=== PATIENT | female | born 1995 | race Caucasian/White ===

== ENCOUNTER 2021-04-22 09:29 | Emergency (ER) | payer OTHER ==
[~2021-04-22] VITALS: Ht 170.2 cm; Wt 97.0 kg
[2021-04-22 09:48] VITALS: BP 146/93
[2021-04-22] MEDS ORDERED: LIDOCAINE 2%/EPI 1:100,000 20 ML VIAL. IJ ONE (10:30)
--- NOTE | 2021-04-22 10:32 | PHYS DOC ---
Past History Past Medical History: No Pertinent History (CORAL ALMEIDA APRN) Past Surgical History: Tonsillectomy (CORAL ALMEIDA APRN) Smoking: Non-smoker Alcohol Use: Rarely Drug Use: None (CORAL ALMEIDA APRN) General Adult EDM: Chief Complaint: OTHER COMPLAINTS HPI: HPI: Patient is a 25-year-old female that presents today with pain in her coccyx area. Patient states pain started on Tuesday, she states she saw her primary care physician on Tuesday, was noted to have a urinary tract infection, and had some x-rays done in the primary care's office, they stated that this could be a toxic injury, instructed her to take the antibiotics for her UTI, and to take Tylenol and/or ibuprofen as needed for pain. Pain has gotten progressively worse over the last 2 days, and the Tylenol and/or ibuprofen is not helping. Patient denies fever and chills, numbness tingling down her legs or groin area, denies having any issues with urinating or defecating. (CORAL ALMEIDA APRN) Review of Systems: Review of Systems: Constitutional: Denies fever or chills Eyes: Denies change in visual acuity HENT: Denies nasal congestion or sore throat Respiratory: Denies cough or shortness of breath Cardiovascular: Denies chest pain or edema GI: Denies abdominal pain, nausea, vomiting, bloody stools or diarrhea : Denies dysuria Musculoskeletal: Pain in the coccyx area Integument: Denies rash Neurologic: Denies headache, focal weakness or sensory changes Endocrine: Denies polyuria or polydipsia Lymphatic: Denies swollen glands Psychiatric: Denies depression or anxiety (CORAL ALMEIDA APRN) Current Medications: Current Meds: Current Medications Medications (Trade) Dose Ordered Sig/Thomas Start Time Stop Time Status Last Admin Dose Admin Lidocaine/ Epinephrine (Xylocaine 2%-Epi 1:100,000) 20 ml 1X ONCE 04/22/21 10:30 04/22/21 10:31 (CORAL ALMEIDA APRN) Allergies: Allergies: Allergies Coded Allergies Type Severity Reaction Last Updated Verified No Known Drug Allergies 05/18/16 No (CORAL ALMEIDA APRN) Physical Exam: PE: Constitutional: Well developed, well nourished, no acute distress, non-toxic appearance. [] HENT: Normocephalic, atraumatic, bilateral external ears normal, oropharynx moist, no oral exudates, nose normal. [] Eyes: PERRLA, EOMI, conjunctiva normal, no discharge. [] Neck: Normal range of motion, no tenderness, supple, no stridor. [] Cardiovascular:Heart rate regular rhythm, no murmur [] Lungs & Thorax: Bilateral breath sounds clear to auscultation [] Abdomen: Bowel sounds normal, soft, no tenderness, no masses, no pulsatile masses. [] Skin: 2 cm x 1 cm raised area in the anibal cleft on the left buttock area, area is painful to touch [] Back: No tenderness, no CVA tenderness. [] Extremities: No tenderness, no cyanosis, no clubbing, ROM intact, no edema. [] Neurologic: Alert and oriented X 3, normal motor function, normal sensory function, no focal deficits noted. [] Psychologic: Affect normal, judgement normal, mood normal. [] (CORAL ALMEIDA APRN) Current Patient Data: Labs: Laboratory Tests Test 04/22/21 10:06 POC Urine HCG, Qualitative hcg negative (Negative) Vital Signs: Vital Signs Date Time Temp Pulse Resp B/P (MAP) Pulse Ox O2 Delivery O2 Flow Rate FiO2 04/22/21 09:48 98.7 108 18 146/93 (110) 98 (CORAL ALMEIDA APRN) EKG: EKG: [] (CORAL ALMEIDA APRN) Radiology/Procedures: Radiology/Procedures: Indication: Pilonidal cyst Procedure: The patient was positioned appropriately and the skin over the incision site was cleansed with betadine]. Local anesthesia was lidocaine 1% with epinephrine 7 mL. An incision was then made over the right buttock pilonidal cyst and large amount of purulent material was expressed. Loculations were broken up with a hemostat. The drainage cavity was then packed with half- inch plain packing. the patients tetanus status unknown, patient will be given a tetanus shot The patient tolerated the procedure well Complications: None] (CORAL ALMEIDA APRN) Heart Score: C/O Chest Pain: N/A Risk Factors: Risk Factors: DM, Current or recent (<one month) smoker, HTN, HLP, family histo ry of CAD, obesity. Risk Scores: Score 0 - 3: 2.5% MACE over next 6 weeks - Discharge Home Score 4 - 6: 20.3% MACE over next 6 weeks - Admit for Clinical Observation Score 7 - 10: 72.7% MACE over next 6 weeks - Early Invasive Strategies (CORAL ALMEIDA APRN) Course & Med Decision Making: Course & Med Decision Making Pertinent Labs and Imaging studies reviewed. (See chart for details) Patient is to continue to take her Bactrim DS, leave packing in place until Tuesday night then remove while in the shower. Follow-up with your primary care physician on Tuesday, patient is to return to the emergency department for increased pain, redness, development of a fever, or any other concerns she may have (CORAL ALMEIDA APRN) Dragon Disclaimer: Dragon Disclaimer: This electronic medical record was generated, in whole or in part, using a voice recognition dictation system. (CORAL ALMEIDA APRN) Departure Departure: Impression: Primary Impression: Pilonidal cyst of cleft Disposition: HOME / SELF CARE / HOMELESS Condition: STABLE Referrals: SEBASTIAN GAYLE APRN (PCP) KATIE WALDRON MD Patient Instructions: Pilonidal Cyst, Care After Additional Instructions: Continue to take Bactrim DS Follow-up with your primary care physician by phone this afternoon and make a follow-up appointment for Tuesday or Tuesday Leave packing in place until Tuesday Return to the emergency department if you develop a fever, increased pain or swelling in that area, . Hydrocodone 1 tablet every 6 hours as needed for severe pain, take Tylenol and/or ibuprofen [id number] as needed for mild to moderate pain Follow-up with the general surgeon provided for further management of the cyst Scripts Hydrocodone Bit/Acetaminophen (HYDROCODONE-APAP 5-325 ) 1 Each Tablet 1 TAB PO PRN Q6HRS PRN for PAIN, #10 TAB 0 Refills Prov: CORAL ALMEIDA APRN 04/22/21 Attending Signature Attending Signature I have reviewed the PA/EXECUTIVE RECEPTIONIST's note and plan of care. I was available for consultation as needed during the patient's visit in the emergency department. I agree with the clinical impression, plan, and disposition. (GEORGE NICOLE DO) CORAL ALMEIDA APRN Apr 22, 2021 10:32 GEORGE NICOLE DO Apr 23, 2021 01:14
[2021-04-22] MEDS ORDERED: LIDOCAINE 1%/EPI 1:100,000 20 ML VIAL. IJ ONE (10:45)
[2021-04-22] MEDS ORDERED: HYDR-2155 PO (11:30)
[2021-04-22] MEDS ORDERED: DIPH,PERTUSS(ACELL),TET VAC/PF 0.5 ML SYRINGE. VAX IM ONE (11:45)
== END 2021-04-22 12:08 | disposition home or self-care (01) ==
LOC: ER 09:29
DX: L05.91 Pilonidal cyst without abscess (principal)
CPT/HCPCS: 10080; 81025; 90471; 90715; 99283

== ENCOUNTER → 2021-08-05 | Day surgery (SDC) | payer OTHER ==
[~2021-08-05] MED LIST: ACETAMINOPHEN 500 MG TABLET PO ONE; ALBUTEROL SULFATE 2.5 MG/3 ML NEBU. NEB PRN; ATROPINE 0.5 MG/5 ML DISP.SYRIN. IV PRN; BUPIVACAINE-EPI 0.25%-1:200000 MPF 30 ML VIAL. ONE; HYDR-2155 PO; IV RINGERS SOLUTION,LACTATED 1,000 ML IV SCH; MIDAZOLAM HCL PF 2 MG/2 ML VIAL. IV PRN; MIDAZOLAM HCL PF 2 MG/2 ML VIAL. ONE; ONDANSETRON PF 4 MG/2 ML VIAL. IV PRN; OXYC-325 PO; PHENOL ORAL SPRAY 177ML BOTTLE. MM PRN; diphenhydrAMINE 50 MG/ML VIAL IV PRN
[2021-08-05 09:26] LABS: U PREG PATIENT NEGATIVE (NEG)
--- NOTE | 2021-08-05 10:51 | PDOC4 ---
Operative Report DATE August 052021 at 10:48 AM Preop Diagnosis Pilonidal cyst Post-op Diagnosis Same Operation Performed Pilonidal cystectomy Patient is 26-year-old female with complaints of a chronically draining wound on her buttocks in the cleft consistent with pilonidal cyst. Procedure of excision of pilonidal cyst was explained to the patient detail risk benefits were also discussed including bleeding infection alternatives this procedure also discussed with the patient who seemed to understand and gave a verbal written consent to have procedure performed. Patient was taken to the operating room placed in supine position general anesthesia was initiated once the patient was asleep in bed she was placed in prone positioning and her buttocks was prepped and draped in usual sterile fashion using ChloraPrep. Area around the pilonidal opening was injected with quarter percent Marcaine with epinephrine elliptical incision was made with 15 blade scalpel is carried down to the subcutaneous tissue using electrocautery right hemostasis down to the fascia the specimen was sent for pathology. The wound was then closed in 3 layers of deep layer running 0 Vicryl more superficial subcutaneous layer 3-0 Vicryl and the skin was reapproximated with horizontal mattress sutures of 2-0 nylon. 4 x 4's ABD and mesh pants were placed as a dressing. Patient was repositioned in a supine positioning awakened and extubated operating room taken to recovery in stable condition all sponge instrument needle counts listed as correct estimated blood loss 10 mL Surgeon Corby ANESTHESIA PROPOSED: GENERAL, LOCAL Blood Loss 10 mL Specimen Pilonidal cyst Complications None TABATHA AGUIRRE MD Aug 05, 2021 10:50
--- NOTE | 2021-08-05 10:54 | DISCH ---
DISCHARGE INSTRUCTIONS-DC Condition on Discharge Condition on Discharge: Stable Activity after Discharge Activity Instructions for Disc: Avoid exertion Diet after Discharge Diet after Discharge: Regular Wound/Incision Care Other wound/incision instructi: May shower in 24 hours Contacting the [facility] after DC Call your doctor for: If your condition worsens Follow-Up Follow up with: Dr. Aguirre in 2 weeks TABATHA AGUIRRE MD Aug 05, 2021 10:54
[2021-08-05 11:31] VITALS: BP 125/80
== END | disposition home or self-care (01) ==
LOC: SURG 08:49
PROVIDERS: ATTEND Surgery
DX: L05.91 Pilonidal cyst without abscess (principal); Z79.899 Other long term (current) drug therapy; Z72.89 Other problems related to lifestyle; Z98.890 Other specified postprocedural states
CPT/HCPCS: 11771; 81025; J0696; J2250; J3010; J3490; J7120